=== PATIENT | female | born 1985 | race Caucasian/White ===

== ENCOUNTER 2017-03-07 10:09 | Inpatient (IN) | payer BC ==
[2017-03-07] VITALS (39 sets, daily range): BP systolic 80–150; BP diastolic 46–86; PULSE 75–106; TEMP 97.9–98.4
[~2017-03-07] VITALS: Ht 162.6 cm; Wt 114.1 kg
[2017-03-07] MEDS ORDERED: PRENATAL1 TA7 PO (10:25)
[2017-03-07] MEDS ORDERED: D-2000 90 MG-201 TAB PO (10:25)
[2017-03-07] MEDS ORDERED: VITAMINC1000TA (10:26)
[2017-03-07 11:30] LABS: BASO % 0.2 % (0.0-2.0); EOS # 0.1 (0.0-0.7); EOS % 0.8 % (0-4.0); GRAN # 6.1 (1.4-6.5); GRAN % 69.5 % (42.2-75.2); HEMATOCRIT 38.5 % (37.0-47.0); HEMOGLOBIN 12.8 g/dl (12.5-16.0); LYMPH # 1.9 (1.2-3.4); LYMPH % 21.2 % (20.0-51.0); MEAN CELL VOLUME 90 fl (80.0-100.0); MEAN CORPUSCULAR HEMOGLOBIN 30 pg (27.0-31.0); MEAN CORPUSCULAR HGB CONC 33 g/dl (33.0-37.0); MEAN PLATELET VOLUME 11.3 fl (7.4-10.4); MONO # 0.7 (0.1-0.6); MONO % 7.8 % (1.7-9.3); PLATELET COUNT 204 K/mm3 (130-400); RED BLOOD COUNT 4.27 M/mm3 (4.10-5.30); WHITE BLOOD COUNT 8.8 K/mm3 (4.8-10.8)
[2017-03-08 04:00] VITALS: BP 119/62; PULSE 84; TEMP 98.3
[2017-03-08 08:10] VITALS: BP 107/58; PULSE 84; TEMP 98.3
[2017-03-08 16:30] VITALS: BP 114/62; PULSE 101; TEMP 98.8
[2017-03-08 22:56] VITALS: BP 110/58; PULSE 79; TEMP 98.5
[2017-03-09] MEDS ORDERED: IBU600 MG PO (06:23)
[2017-03-09] MEDS ORDERED: PERCOCET 325 MG1 TA2 PO (06:23)
[2017-03-09 08:15] VITALS: BP 124/61; PULSE 88; TEMP 98.3
[2017-03-09 16:15] VITALS: BP 118/74; PULSE 97; TEMP 98.4
[2017-03-09 19:34] VITALS: BP 125/80; PULSE 104; TEMP 98.9
[2017-03-10 06:45] VITALS: BP 114/55; PULSE 91; TEMP 98.5
== END 2017-03-10 11:30 | disposition home or self-care (01) | DRG 766 ==
LOC: LDRO 10:09 → LDR 10:38 → LDRO 11:57 → LDR 11:58 → OB 03-08 02:19
PROVIDERS: Obstetrics & Gynecology
PROC: 10D00Z1 Extraction of Products of Conception, Low, Open Approach (ICD-10-PCS; principal; 2017-03-07)
DX: O48.0 Post-term pregnancy (principal); O76 Abnormality in fetal heart rate and rhythm complicating labor and delivery; Z3A.40 40 weeks gestation of pregnancy; Z37.0 Single live birth
CPT/HCPCS: J0690; J1885; J2270; J2370; J2405; J2540; J2550; J2590; J7120

== ENCOUNTER 2018-03-10 10:51 | Emergency (ER) | payer BC ==
[~2018-03-10] VITALS: Ht 162.6 cm; Wt 106.4 kg
[~2018-03-10 10:51] MED LIST: D-2000 90 MG-201 TAB PO; IBU600 MG PO; PERCOCET 325 MG1 TA2 PO; PRENATAL1 TA7 PO; VITAMINC1000TA
[2018-03-10 10:56] VITALS: TEMP 98.4
[2018-03-10 11:34] LABS: COLLECTION METHOD CLEAN CATCH
[2018-03-10 11:54] LABS: MUCOUS Present /lpf; PH 5 (5-8); URINE APPEARANCE Clear; URINE BACTERIA Rare /hpf; URINE BILIRUBIN Negative (NEGATIVE); URINE BLOOD 1+ (NEGATIVE); URINE COLOR Yellow; URINE GLUCOSE Negative (NEGATIVE); URINE KETONE Negative (NEGATIVE); URINE LEUKOCYTE ESTERASE Negative (NEGATIVE); URINE NITRATE Negative (NEGATIVE); URINE PROTEIN(semi-quant) 1+ (NEGATIVE); URINE UROBILINOGEN Negative (NEGATIVE)
[2018-03-10] MEDS ORDERED: CRANBERRY500 M3 PO (12:02)
[2018-03-10 12:32] LABS: BASO % 0.3 % (0.0-2.0); EOS % 0.3 % (0-4.0); GRAN # 7.3 (1.4-6.5); GRAN % 75.1 % (42.2-75.2); HEMOGLOBIN 13.9 g/dl (12.5-16.0); LYMPH # 1.9 (1.2-3.4); MEAN CELL VOLUME 90 fl (80.0-100.0); MEAN CORPUSCULAR HEMOGLOBIN 29 pg (27.0-31.0); MEAN CORPUSCULAR HGB CONC 32 g/dl (33.0-37.0); MEAN PLATELET VOLUME 9.8 fl (7.4-10.4); MONO # 0.5 (0.1-0.6); PLATELET COUNT 347 K/mm3 (130-400); RED BLOOD COUNT 4.78 M/mm3 (4.10-5.30); REDCELL DISTRIBUTION WIDTH-CV 13.3 % (11.5-14.5)
[2018-03-10 12:45] LABS: ALANINE AMINOTRANSFERASE 48 U/L (9-52); ALBUMIN 4.3 gm/dL (3.5-5.0); ALKALINE PHOSPHATASE 74 U/L (50-136); ANION GAP 5 mmol/L (7-16); AST,SGOT 32 U/L (15-37); BILIRUBIN,TOTAL 0.5 mg/dL (0.0-1.0); BLOOD UREA NITROGEN 10 mg/dL (7-17); CALCIUM 9.3 mg/dL (8.4-10.2); CARBON DIOXIDE 27 mmol/L (22-30); CHLORIDE 107 mmol/L (98-107); CREATININE, serum 0.76 mg/dL (0.52-1.25); GLUCOSE 95 mg/dL (74-106); POTASSIUM 4.4 mmol/L (3.4-5.0); SODIUM 139 mmol/L (137-145); TOTAL PROTEIN 7.4 gm/dL (6.4-8.2)
[2018-03-10 12:52] LABS: C-REACTIVE PROTEIN < 0.5 mg/dL (0.0-0.9)
[2018-03-10] MEDS ORDERED: ZOFRAN ODT4 MG PO (13:17)
[2018-03-10] MEDS ORDERED: NORCO 325 MG-51 TAB PO (13:17)
[2018-03-10 13:58] VITALS: BP 118/70; PULSE 85
== END 2018-03-10 15:07 | disposition home or self-care (01) ==
LOC: COL.ER 10:51
PROVIDERS: Emergency Medicine; Physician Assistant
DX: N20.0 Calculus of kidney (principal); Z98.890 Other specified postprocedural states
CPT/HCPCS: J1885; J2405; J7030; Q9967

== ENCOUNTER 2018-04-23 13:31 | Emergency (ER) | payer BC ==
[~2018-04-23] VITALS: Ht 162.6 cm; Wt 104.5 kg
[~2018-04-23 13:31] MED LIST changes: +CRANBERRY500 M3 PO; +NORCO 325 MG-51 TAB PO; +ZOFRAN ODT4 MG PO
[2018-04-23 13:37] VITALS: BP 136/88; TEMP 98.9
[2018-04-23 14:03] LABS: COLLECTION METHOD CLEAN CATCH
[2018-04-23 14:09] LABS: BASO % 0.4 % (0.0-2.0); EOS # 0.1 (0.0-0.7); EOS % 1.1 % (0-4.0); GRAN # 6.6 (1.4-6.5); GRAN % 66.8 % (42.2-75.2); HEMATOCRIT 41.6 % (37.0-47.0); HEMOGLOBIN 13.6 g/dl (12.5-16.0); LYMPH # 2.5 (1.2-3.4); LYMPH % 25.6 % (20.0-51.0); MEAN CELL VOLUME 88 fl (80.0-100.0); MEAN CORPUSCULAR HEMOGLOBIN 29 pg (27.0-31.0); MEAN CORPUSCULAR HGB CONC 33 g/dl (33.0-37.0); MEAN PLATELET VOLUME 9.8 fl (7.4-10.4); MONO # 0.6 (0.1-0.6); MONO % 5.7 % (1.7-9.3); PLATELET COUNT 405 K/mm3 (130-400); RED BLOOD COUNT 4.73 M/mm3 (4.10-5.30); REDCELL DISTRIBUTION WIDTH-CV 13.2 % (11.5-14.5)
[2018-04-23 14:12] LABS: MUCOUS Present /lpf; PH 5 (5-8); URINE APPEARANCE Cloudy; URINE BACTERIA Rare /hpf; URINE BILIRUBIN Negative (NEGATIVE); URINE BLOOD 2+ (NEGATIVE); URINE COLOR Yellow; URINE GLUCOSE Negative (NEGATIVE); URINE KETONE Negative (NEGATIVE); URINE LEUKOCYTE ESTERASE Negative (NEGATIVE); URINE NITRATE Negative (NEGATIVE); URINE PROTEIN(semi-quant) 1+ (NEGATIVE); URINE RBC >50 /hpf
[2018-04-23 14:27] LABS: ALBUMIN 4.3 gm/dL (3.5-5.0); BILIRUBIN,TOTAL 0.3 mg/dL (0.0-1.0); C-REACTIVE PROTEIN 0.6 mg/dL (0.0-0.9); CALCIUM 9.2 mg/dL (8.4-10.2); CREATININE, serum 0.74 mg/dL (0.52-1.25); TOTAL PROTEIN 7.5 gm/dL (6.4-8.2)
[2018-04-23] MEDS ORDERED: ZOFRAN 4MG T4 MG/TAB PO (17:07)
[2018-04-23] MEDS ORDERED: CEPHALEXIN500 M1 PO (17:07)
[2018-04-23] MEDS ORDERED: NORCO 325 MG-51 TAB PO (17:07)
[2018-04-23 17:23] VITALS: PULSE 84
== END 2018-04-23 17:23 | disposition home or self-care (01) ==
LOC: COL.ER 13:31
PROVIDERS: Emergency Medicine
DX: N39.0 Urinary tract infection, site not specified (principal); Z87.442 Personal history of urinary calculi; Z98.890 Other specified postprocedural states
CPT/HCPCS: J1885; J2405; J7030

== ENCOUNTER 2018-05-22 09:57 | Day surgery (SDC) | payer BC ==
[~2018-05-22] VITALS: Ht 162.6 cm; Wt 119.0 kg
[~2018-05-22 09:57] MED LIST changes: +CEPHALEXIN500 M1 PO; +ZOFRAN 4MG T4 MG/TAB PO
[2018-05-22 11:10] VITALS: BP 113/81; PULSE 81; TEMP 98.2
[2018-05-22 13:00] VITALS: BP 111/73; PULSE 79; TEMP 97.3
--- NOTE | 2018-05-22 13:00 | NUR ---
Patient recieved from PACU, wheeled back to bay 3. Alert and oriented. Denies any pain or nausea. Vital signs obtained, WNL. States she needs to use restroom. Ambulated to bathroom without difficulty. States she was able to urinate and noticed 3 pieces of stone in urine. Requesting water and muffin at this time. Tolerating well. Will continue to monitor.
[2018-05-22 13:15] VITALS: BP 113/60; PULSE 66
[2018-05-22 13:30] VITALS: BP 116/64; PULSE 86
--- NOTE | 2018-05-22 13:30 | NUR ---
Patient states that she is ready to go home. No pain or nausea at this time.
[2018-05-22 13:36] VITALS: BP 114/68; PULSE 78
--- NOTE | 2018-05-22 13:50 | NUR ---
Discharge instructions reviewed with patient and mother, all questions answered. Patient wheeled down to lobby via nurse. To be driven home by mother.
== END 2018-05-22 13:50 | disposition home or self-care (01) ==
LOC: SDCO 09:57
DX: N20.1 Calculus of ureter (principal); Z87.891 Personal history of nicotine dependence; Z79.899 Other long term (current) drug therapy; E78.5 Hyperlipidemia, unspecified; E66.9 Obesity, unspecified; Z68.41 Body mass index [BMI] 40.0-44.9, adult; R39.11 Hesitancy of micturition
CPT/HCPCS: C1769; J0690; J1100; J1885; J2405; J2704; J3010; J7120; Q9967

== ENCOUNTER → 2019-03-30 | Outpatient (CLI) | payer BC | LOC: COL.RAD 13:23 | DX: O26.893 Other specified pregnancy related conditions, third trimester (principal); R10.11 Right upper quadrant pain; Z3A.31 31 weeks gestation of pregnancy ==

== ENCOUNTER 2019-06-03 05:37 | Inpatient (IN) | payer BC ==
[2019-06-03] VITALS (20 sets, daily range): BP systolic 90–136; BP diastolic 43–82; PULSE 88–106; TEMP 97–98.2
[~2019-06-03] VITALS: Ht 162.6 cm; Wt 124.1 kg
--- NOTE | 2019-06-03 05:45 | NUR ---
0540- Patient ambulatory to 222. Patient oriented to room and into restroom to change into gown. 0545- EFM and TOCO on and tracing. Patient denies contractions, but reports mild cramping. Patient denies bleeding, spotting, or leaking of fluid. Patient reports good movement. IV started by FRANCIS Brice. LR infusing. Labs drawn and sent. Consents signed.
[2019-06-03 06:08] LABS: BASO % 0.2 % (0.0-2.0); EOS # 0.1 (0.0-0.7); EOS % 0.9 % (0-4.0); GRAN # 6.8 (1.4-6.5); GRAN % 68.9 % (42.2-75.2); HEMOGLOBIN 13.1 g/dl (12.5-16.0); LYMPH # 2.2 (1.2-3.4); MEAN CELL VOLUME 88 fl (80.0-100.0); MEAN CORPUSCULAR HEMOGLOBIN 29 pg (27.0-31.0); MEAN CORPUSCULAR HGB CONC 33 g/dl (33.0-37.0); MEAN PLATELET VOLUME 11.3 fl (7.4-10.4); MONO # 0.8 (0.1-0.6); MONO % 7.6 % (1.7-9.3); PLATELET COUNT 240 K/mm3 (130-400); RED BLOOD COUNT 4.57 M/mm3 (4.10-5.30)
[2019-06-03] MEDS ORDERED: PRENATAL (06:25)
[2019-06-04 03:00] VITALS: BP 127/76; PULSE 99; TEMP 98.1
[2019-06-04] MEDS ORDERED: MOTRIN 800800 MG/TAB PO (08:03)
[2019-06-04] MEDS ORDERED: PERCOCET 325 MG1 TA2 PO (08:03)
[2019-06-04 08:15] VITALS: BP 128/60; PULSE 96; TEMP 97.7
--- NOTE | 2019-06-04 09:16 | NUR ---
Initial visit; Patient thanked [employer] for offering congratulations and God's blessings for the of her daughter. [employer] thanked patient for choosing [facility].
[2019-06-04 16:21] VITALS: BP 119/71; PULSE 89; TEMP 65.1
[2019-06-04 20:15] VITALS: BP 122/79; PULSE 89
[2019-06-05 07:07] VITALS: BP 116/74; PULSE 72; TEMP 98.1
== END 2019-06-05 13:40 | disposition home or self-care (01) | DRG 788 ==
LOC: OB 05:37
PROVIDERS: ADMIT Obstetrics & Gynecology
PROC: 10D00Z1 Extraction of Products of Conception, Low, Open Approach (ICD-10-PCS; principal; 2019-06-03)
DX: O34.211 Maternal care for low transverse scar from previous cesarean delivery (principal); O99.214 Obesity complicating childbirth; O99.013 Anemia complicating pregnancy, third trimester; D64.9 Anemia, unspecified; Z3A.40 40 weeks gestation of pregnancy; Z37.0 Single live birth; O69.1XX0 Labor and delivery complicated by cord around neck, with compression, not applicable or unspecified
CPT/HCPCS: J0690; J1100; J1885; J2270; J2405; J2590; J7120

== ENCOUNTER 2021-08-25 18:04 | Emergency (ER) | payer BC ==
[~2021-08-25] VITALS: Ht 162.6 cm; Wt 120.5 kg
[~2021-08-25 18:04] MED LIST changes: +MOTRIN 800800 MG/TAB PO; +PRENATAL
[2021-08-25 18:25] VITALS: BP 145/78; PULSE 106; TEMP 97.5
[2021-08-25] MEDS ORDERED: AMOXICILLIN 8751 TAB PO (19:03)
[2021-08-25] MEDS ORDERED: PREDNISONE20 MG PO (19:03)
== END 2021-08-25 19:22 | disposition home or self-care (01) ==
LOC: COL.ER 18:04
DX: J01.90 Acute sinusitis, unspecified (principal); Z28.310 Unvaccinated for COVID-19
CPT/HCPCS: J1885; J7512

== ENCOUNTER 2021-08-26 20:33 | Emergency (ER) | payer BC ==
[~2021-08-26] VITALS: Ht 162.6 cm; Wt 120.5 kg
[~2021-08-26 20:33] MED LIST changes: +AMOXICILLIN 8751 TAB PO; +PREDNISONE20 MG PO
[2021-08-26 20:46] VITALS: BP 133/98; TEMP 97.5
[2021-08-26 21:15] VITALS: PULSE 76
== END 2021-08-26 21:15 | disposition home or self-care (01) ==
LOC: COL.ER 20:33
DX: J06.9 Acute upper respiratory infection, unspecified (principal); Z28.310 Unvaccinated for COVID-19
CPT/HCPCS: J1885